=== PATIENT | male | born 1960 | race Caucasian/White ===

== ENCOUNTER 2025-02-22 09:12 | Emergency (ER) | payer OTHER, SELFPAY ==
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
[2025-02-22 09:33] VITALS: BP 159/112; PULSE 89; RESP 16; TEMP 36.6; O2SAT 97
--- NOTE | 2025-02-22 10:14 | PC.NURSE ---
1013 Patient sitting hn room, continues to complain of pain to right posterior rib cage; Radiologist spoke to provider regarding xray report-provider making arrangement for transfer.
[2025-02-22 10:22] VITALS: PULSE 79; RESP 22; TEMP 36.7; O2SAT 98
== END 2025-02-22 10:40 | disposition short-term general hospital (02) ==
PROVIDERS: Emergency Provider Nurse Practitioner; PCP Family Medicine
DX: J93.9 Pneumothorax, unspecified (principal); S22.41XA Multiple fractures of ribs, right side, initial encounter for closed fracture; V18.4XXA Pedal cycle driver injured in noncollision transport accident in traffic accident, initial encounter
CPT/HCPCS: 71101; 99215; G0463